=== PATIENT | female | born 1970 | race African-American/Black ===

== ENCOUNTER 2016-09-26 18:58 | Emergency (ER) | payer OTHER ==
[~2016-09-26] VITALS: Ht 160 cm; Wt 102.1 kg
[2016-09-26] MEDS ORDERED: ONDANSETRON PF 4 MG/2 ML VIAL. ONE (19:17)
[2016-09-26] MEDS ORDERED: IV NORMAL SALINE 1,000ML 1,000 ML IV SCH (19:18)
[2016-09-26] MEDS ORDERED: MORPHINE SULFATE 4 MG/ML DISP.SYRIN. IV/SQ PRN (19:30)
[2016-09-26 19:42] LABS: BACTERIA,URINE 0 /HPF (0-FEW); BILIRUBIN,URINE NEG (NEG); CLARITY,URINE CLEAR; COLOR,URINE STRAW; GLUCOSE,URINE NEG (NEG); HYALINE CASTS, URINE OCC /HPF; NITRITE,URINE NEG (NEG); RBC,URINE 0 /HPF (0-2); SQUAMOUS EPITHELIAL CELL,UR OCC /LPF; UROBILINOGEN,URINE 0.2 mg/dL (0.2 mg/dL); WBC,URINE OCC /HPF (0-4)
[2016-09-26 19:42] LABS: BASO # 0.1 x10^3/uL (0.0-0.2); BASO % 1 % (0-3); EOS % 0 % (0-3); HEMATOCRIT 40.3 % (36.0-47.0); HEMOGLOBIN 13.1 g/dL (12.0-15.5); LYMPH # 2.3 x10^3/uL (1.0-4.8); LYMPH % 21 % (24-48); MEAN CORPUSCULAR HEMOGLOBIN 27 pg (25-35); MEAN CORPUSCULAR HGB CONC 33 g/dL (31-37); MEAN CORPUSCULAR VOLUME 82 fL (79-100); MONO # 0.5 x10^3/uL (0.0-1.1); MONO % 5 % (0-9); NEUT # 8.1 x10^3uL (1.8-7.7); NEUT % 74 % (31-73); PLATELET COUNT 204 x10^3/uL (140-400); RED BLOOD COUNT 4.89 x10^6/uL (3.50-5.40); RED CELL DISTRIBUTION WIDTH 15.4 % (11.5-14.5); WHITE BLOOD COUNT 10.9 x10^3/uL (4.0-11.0)
[2016-09-26] MEDS ORDERED: KETOROLAC 30 MG/ML VIAL. IV ONE (19:45)
[2016-09-26] MEDS ORDERED: FAMOTIDINE 20 MG/2 ML VIAL IVP ONE (19:45)
[2016-09-26] MEDS ORDERED: ONDANSETRON PF 4 MG/2 ML VIAL. IV ONE (19:45)
[2016-09-26] MEDS ORDERED: IOHEXOL 300 MG/ML 75 ML VIAL. IV ONE (19:45)
[2016-09-26 19:50] LABS: BARBITURATES NEG (NEG); BENZODIAZEPINES NEG (NEG); CANNABINOIDS NEG (NEG); COCAINE NEG (NEG); METHADONE NEG (NEG); OPIATES NEG (NEG); PHENCYCLIDINE NEG (NEG)
[2016-09-26 19:51] LABS: AMPHETAMINE/METHAMPHETAMINE NEG (NEG)
[2016-09-26 19:56] LABS: ALBUMIN 3.9 g/dL (3.4-5.0); ALBUMIN/GLOBULIN RATIO 0.8 (1.0-1.7); CALCIUM 8.8 mg/dL (8.5-10.1); CREATININE 0.8 mg/dL (0.6-1.0); GFR 93.4; POTASSIUM 3.5 mmol/L (3.5-5.1); TOTAL BILIRUBIN 0.4 mg/dL (0.2-1.0); TOTAL PROTEIN 8.5 g/dL (6.4-8.2)
--- NOTE | 2016-09-26 20:28 | RAD ---
PROCEDURE CT study of the abdomen and pelvis with contrast HISTORY Right lower quadrant abdominal pain with nausea today. TECHNIQUE After IV infusion of 75 cc Omnipaque 300, helical CT scanning of the abdomen and pelvis was performed. No GI contrast was administered. This may decrease the sensitivity to detect GI tract pathology. One or more of the following individualized dose reduction techniques were utilized for this study: 1. Automated exposure control 2. Adjustment of the mA and/or kV according to patient size 3. Use of iterative reconstruction technique COMPARISON None available. FINDINGS The liver and spleen and pancreas and gallbladder are normal. No biliary ductal dilatation is seen. No adrenal mass is evident. No hydronephrosis or hydroureter or renal mass is seen. Urinary bladder is not distended. No obstructive bowel pattern is seen. The appendix is abnormally distended. There is wall thickening with moderate periappendiceal inflammatory change. Two appendicoliths of the appendix are seen. No free fluid or free air or abscess is seen. The findings are consistent with appendicitis. No obstructive bowel pattern is seen. No abdominal aortic aneurysm is seen. No enlarged abdominal or pelvic lymphadenopathy is seen. No lung base consolidation is seen. No osteolytic process is seen. IMPRESSION Appendicitis. No abscess or free air or bowel obstruction is seen. Electronically signed by: Irving Isidro MD (September 26, 2016 20:27:17)
--- NOTE | 2016-09-26 20:51 | PHYS DOC ---
General Chief Complaint: ABDOMINAL PAIN Stated Complaint: ABD PAIN Time Seen by MD: 19:00 Source: patient Exam Limitations: no limitations Problems: History of Present Illness Initial Comments Pt is 46/F to ED c/o abdominal pain. Pt states shortly after noon today she noticed epigastric discomfort. Thru the day sx worsened, now c/o abdominal discomfort right abdomen radiating to right flank. Last PO approx 1400, last BM today soft. Decreased appetite, no fever/ chills/vomitting/diarrhea. Pt became nauseous during my initial PE but no emesis. Timing/Duration: getting worse, changing over time Severity: moderate Modifying Factors: worse with movement, improves with rest Associated Symptoms: malaise, nausea/vomiting, other Allergies: Coded Allergies: No Known Drug Allergies (Unverified , 09/26/16) Past Medical History Medical History: no pertinent history Surgical History: noncontributory (CS) Social History Smoker: non-smoker Alcohol: none Drugs: none Review of Systems Constitutional: denies chills, denies diaphoresis, denies fever, malaise Respiratory: denies cough, denies shortness of breath Cardiovascular: denies chest pain, denies palpitations Gastrointestinal: see HPI Genitourinary: denies dysuria, denies frequency, denies hematuria Musculoskeletal: denies back pain, denies joint swelling, denies neck pain Psychiatric/Neurological: denies headache, denies numbness, denies paresthesia Hematologic/Lymphatic: denies blood clots, denies easy bleeding, denies easy bruising Physical Exam General Appearance: no apparent distress, obese Ear, Nose, Throat: hearing grossly normal, normal ENT inspection Neck: non-tender, supple Respiratory: normal breath sounds, no respiratory distress Cardiovascular: normal peripheral pulses, regular rate, rhythm Gastrointestinal: soft (BS diminished, RLQ TTP no r/g/mass, nondistended), no organomegaly Back: no CVA tenderness, no vertebral tenderness Extremities: non-tender, normal inspection Neurologic/Psychiatric: funeral attendant II-XII nml as tested, no motor/sensory deficits, alert, normal mood/affect, oriented x 3 Skin: normal color, warm/dry Orders, Labs, Meds Pt refused EKG initially, however once diagnosis established she agreed for pre- op clearance. EKG: NSR 68 bpm, no acute ischemic changes PATIENT: ODETTE KAMARA ACCOUNT: [id number] : 1970 LOCATION: ER AGE: 46 SEX: F EXAM STATUS: REG ER ORD. PHYSICIAN: JACK COOK DO REASON: R-sided abdominal pain PROCEDURE: CT ABD PELV W/ IV CONTRST ONLY PROCEDURE CT study of the abdomen and pelvis with contrast HISTORY Right lower quadrant abdominal pain with nausea today. TECHNIQUE After IV infusion of 75 cc Omnipaque 300, helical CT scanning of the abdomen and pelvis was performed. No GI contrast was administered. This may decrease the sensitivity to detect GI tract pathology. One or more of the following individualized dose reduction techniques were utilized for this study: 1. Automated exposure control 2. Adjustment of the mA and/or kV according to patient size 3. Use of iterative reconstruction technique COMPARISON None available. FINDINGS The liver and spleen and pancreas and gallbladder are normal. No biliary ductal dilatation is seen. No adrenal mass is evident. No hydronephrosis or hydroureter or renal mass is seen. Urinary bladder is not distended. No obstructive bowel pattern is seen. The appendix is abnormally distended. There is wall thickening with moderate periappendiceal inflammatory change. Two appendicoliths of the appendix are seen. No free fluid or free air or abscess is seen. The findings are consistent with appendicitis. No obstructive bowel pattern is seen. No abdominal aortic aneurysm is seen. No enlarged abdominal or pelvic lymphadenopathy is seen. No lung base consolidation is seen. No osteolytic process is seen. IMPRESSION Appendicitis. No abscess or free air or bowel obstruction is seen. Electronically signed by: Edwardo Isidro MD (September 26, 2016 20:27:17) DICTATED AND SIGNED BY: EDWARDO ISIDRO MD DATE: 09/26/162026 CC: PCP,UNKNOWN; JACK COOK DO ~ Labs unremarkable. 2058: Pt discussed with youth development professional Gen Surg Dr Tian, requests NPO/cefoxitin IV/ transfer to [facility] admit to youth development professional hospitalist. 2020: Pt discussed with Dr Larsen hospitalist, he accepts medsurg transfer to [facility] Departure Time of Disposition: 22:08 Disposition: 05 XFER OTHER Diagnosis: acute appendicitis Condition: STABLE Additional Instructions: EMS transfer to [facility] Dr Larsen is accepting, Dr Tian to be consulted. JACK COOK DO September 26, 2016 20:51
[2016-09-26] MEDS ORDERED: CEFOXITIN SODIUM 2 GM in IV NORMAL SALINE 100ML 100 ML IV ONE (22:00)
--- NOTE | 2016-09-26 22:05 | EKG ---
[address] [address] Test Date: 2016-09-26 Test Time: 22:04:11 Pat Name: ODETTE KAMARA Department: Room: Gender: F Senior Qa Tester: : 1970 Requested By: JACK COOK Order Number: [id number] Reading MD: Benjamin Torres Measurements Intervals [place] Rate: 68 P: 33 WA: 154 QRS: 13 QRSD: 82 T: 43 QT: 408 QTc: 439 Interpretive Statements SINUS RHYTHM NON-SPECIFIC ST/T CHANGES Electronically Signed On 09-27-2016 13:24:51 CDT by Benjamin Torres
[2016-09-26 22:45] VITALS: BP 141/79
== END 2016-09-26 22:45 | disposition short-term general hospital (02) ==
LOC: ER 18:58
DX: K35.80 Unspecified acute appendicitis (principal); R53.81 Other malaise
CPT/HCPCS: 36415; 74177; 80053; 80305; 80320; 81001; 82550; 83690; 84484; 85027; 93005; 96361; 96365; 96375; 99285; J0694; J1885; J2405; Q9967; S0028; G0480; G0481; J7030

== ENCOUNTER → 2019-07-01 | Outpatient (CLI) | payer OTHER ==
--- NOTE | 2019-07-02 08:59 | RAD ---
History: Routine screening. Technique: Bilateral digital mammographic routine views were obtained with 2-D and 3-D technique, including CAD - computer aided detection. Comparison: None. This is a baseline.. Findings: Breast Tissue Density B :The breast tissue is composed of mixed fatty and fibroglandular tissue. There are no suspicious masses, microcalcifications or areas of architectural distortion. Impression: Negative mammogram. BI-RADS Category 1: Negative. Normal interval followup. A mammogram does not have 100% sensitivity and therefore a negative imaging study should not delay further work up of a suspicious abnormality. The patient will receive a letter with the results in the mail. Patient information is entered into the reminder system with a target due date for the next screening mammogram. The patient will receive a reminder. "Our facility is accredited by the [employer] Mammography Program." BI-RADS 1 -- negative findings (within normal)
== END | disposition home or self-care (01) ==
LOC: MAMMO 11:06
PROVIDERS: ATTEND Physician Assistant Medical
DX: Z12.31 Encounter for screening mammogram for malignant neoplasm of breast (principal); N64.89 Other specified disorders of breast
CPT/HCPCS: 77067